=== PATIENT | female | born 1955 ===

== ENCOUNTER → 2017-03-05 | Outpatient (CLI) | payer MEDICARE, BC ==
[~2017-03-05] MED LIST: ADVAIR 100-501 EACH INH; AUGMENTIN875 MG PO; AZULFIDINE PO; BACTROBAN N1 GM/TUBE NOSE; CIPRO500 MG PO; DELTASONE5 MG PO; DIFLUCAN ORA10 MG/ML PO; DIFLUCAN ORA40 MG/ML PO; DIOCTO (= CO10 MG/ML PEG; DURAGESIC 50MC50 MCG TOP; FLAGYL500 MG PO; FLORASTOR250 MG PO; FOLIC ACID1 MG PO; LASIX20 M1 PO; MAG119MX PO; MEDROL4 M1 PO; METHOTREXATE2.5 MG PO; MILK OF MA400 MG/5 M PO; MOBIC7.5 MG PO; MORPHINE SULFAT15 M1 PO; MYCOSTATIN 500,1 TAB PO; NILSTAT60 ML PO; NORVASC5 MG PO; OCUVITE SOFTGE1 EACH PO; PLAQUENIL200 M1 PO; PREDNISONE10 MG PO; PROAIR HFA8.5 GM INH; RESTASIS1 EACH OPHTH; ROXANOL PEG; TESSALON PERLE100 MG PO; TYLENOL325 MG PO
== END ==
LOC: LFPA 15:32
DX: Z79.52 Long term (current) use of systemic steroids (principal)